=== PATIENT | female | born 2000 | race Caucasian/White ===

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

== ENCOUNTER 2020-12-08 14:22 | Emergency (ER) | payer OTHER ==
[2020-12-08 14:52] VITALS: BP 128/78; PULSE 115; TEMP 98.3; BMI 21.7
== END 2020-12-08 17:45 | disposition home or self-care (01) ==
LOC: JERFT 14:22
DX: S00.83XA Contusion of other part of head, initial encounter (principal)
CPT/HCPCS: 70450-TC; 70486-TC; 99284-25

== ENCOUNTER 2021-06-16 00:01 | Emergency (ER) | payer OTHER ==
[2021-06-16 00:22] VITALS: BP 111/68; PULSE 90; TEMP 98.2; BMI 23.4
[2021-06-16 01:29] LABS: EPI CELLS 21 /uL (0-25.1); HYALINE CASTS 4 /uL (0-3.1); URINE APPEARANCE CLOUDY; URINE BACTERIA 2828 /uL (0-1359); URINE BILIRUBIN NEGATIVE (NEGATIVE); URINE COLOR YELLOW; URINE GLUCOSE (UA) NEGATIVE (NEGATIVE); URINE KETONE TRACE (NEGATIVE); URINE LEUK ESTERASE 3+ (NEGATIVE); URINE NITRITE NEGATIVE (NEGATIVE); URINE PROTEIN 2+ (NEGATIVE); URINE RBC 555 /uL (0-23.9); URINE WBC 4257 /uL (0-25.8)
[2021-06-16 01:34] LABS: HCG,QUALITATIVE URINE Negative
[2021-06-16 02:42] LABS: YEAST NONE SEEN (NEGATIVE)
== END 2021-06-16 01:30 | disposition home or self-care (01) ==
LOC: JER 00:01
DX: N30.01 Acute cystitis with hematuria (principal); T80.62XA Other serum reaction due to vaccination, initial encounter
CPT/HCPCS: 36415; 81003; 84703; 87086; 87186; 87491; 87591; 87661; 99283-25; C9803; U0003; U0005

== ENCOUNTER 2021-12-29 23:20 | Emergency (ER) | payer OTHER ==
[2021-12-29 23:29] VITALS: BP 136/92; PULSE 120; TEMP 98; BMI 22.4
[2021-12-29] MEDS ORDERED: methylPREDNISolone NA SUCC 125 MG/2 ML VIAL IVPB ONE (23:30)
[2021-12-29] MEDS ORDERED: FAMOTIDINE 20 MG/50 ML IVPB 20 MG/50 ML MG IVPB ONE (23:30)
[2021-12-29] MEDS ORDERED: FAMOTIDINE 10 MG/ML VIAL IVPB ONE (23:31)
[2021-12-29] MEDS ORDERED: methylPREDNISolone NA SUCC 125 MG/2 ML VIAL ONE (23:31)
== END 2021-12-30 00:48 | disposition home or self-care (01) ==
LOC: JER 23:20
PROC: 3E033GC Introduction of Other Therapeutic Substance into Peripheral Vein, Percutaneous Approach (ICD-10-PCS; principal; 2021-12-29)
PROC: 3E033GC Introduction of Other Therapeutic Substance into Peripheral Vein, Percutaneous Approach (ICD-10-PCS; 2021-12-29)
PROC: 3E033GC Introduction of Other Therapeutic Substance into Peripheral Vein, Percutaneous Approach (ICD-10-PCS; 2021-12-29)
DX: Z91.013 Allergy to seafood (principal)
CPT/HCPCS: 99284-25

== ENCOUNTER 2023-05-21 23:57 | Emergency (ER) | payer OTHER ==
[2023-05-22 00:15] VITALS: TEMP 98.1; BMI 25.2
[2023-05-22] MEDS ORDERED: ACETAMINOPHEN 1000 MG/100 ML BAG IVPB ONE (00:23)
[2023-05-22] MEDS ORDERED: ACETAMINOPHEN INJECTION 100 ML IVPB ONE (00:52)
[2023-05-22 01:26] LABS: BASO % 0.4 % (0-2.0); EOS % 1.4 % (0-4.5); HEMATOCRIT 38.7 % (32.4-45.2); HEMOGLOBIN 12.6 GM/dL (10.7-15.3); LYMPH % 12.6 % (8-40); MCH 25.8 pg (25.7-33.7); MCHC 32.5 g/dl (32.0-36.0); MEAN CELL VOLUME 79.3 fl (80-96); NEUT % 79.6 % (42.8-82.8); PLATELET COUNT 425 10^3/uL (134-434); RBC 4.88 M/mm3 (3.60-5.2); RDW 14.2 % (11.6-15.6); WHITE BLOOD COUNT 14.4 K/mm3 (4.0-10.0)
[2023-05-22 01:48] LABS: ALBUMIN 3.6 g/dl (3.4-5.0); BLOOD UREA NITROGEN 6.9 mg/dL (7-18); CALCIUM 8.9 mg/dL (8.5-10.1)
[2023-05-22 01:51] LABS: CREATININE 0.7 mg/dL (0.55-1.3)
[2023-05-22 01:53] LABS: BILIRUBIN,TOTAL 0.2 mg/dL (0.2-1); TOT PROT 7.9 g/dl (6.4-8.2)
[2023-05-22 02:21] LABS: PH,URINE 5.5 (5.0-8.0); URINE APPEARANCE CLEAR; URINE BILIRUBIN NEGATIVE (NEGATIVE); URINE COLOR YELLOW; URINE GLUCOSE (UA) NEGATIVE (NEGATIVE); URINE KETONE NEGATIVE (NEGATIVE); URINE LEUK ESTERASE NEGATIVE (NEGATIVE); URINE NITRITE NEGATIVE (NEGATIVE); URINE PROTEIN NEGATIVE (NEGATIVE); URINE UROBILINOGEN 0.2 mg/dL (0.2-1.0)
[2023-05-22] MEDS ORDERED: morphine CARPU-JECT 4 MG/1 ML DISP.SYRIN IVPUSH ONE (02:25)
[2023-05-22 02:33] LABS: INR 0.95 (0.83-1.09)
[2023-05-22 02:36] LABS: ACTIVATED PTT 23.8 SECONDS (25.2-36.5)
[2023-05-22 02:38] LABS: HCG,QUALITATIVE URINE Negative
[2023-05-22] MEDS ORDERED: morphine SULFATE 4 MG/ML VIAL ONE (02:43)
[2023-05-22] MEDS ORDERED: KETOROLAC TROMETHAMINE 15 MG/ML VIAL IVPUSH ONE (06:46)
[2023-05-22] MEDS ORDERED: KETOROLAC TROMETHAMINE 15 MG/ML VIAL ONE (06:50)
[2023-05-22] MEDS ORDERED: ONDANSETRON 4 MG/2 ML VIAL IVPUSH ONE (07:36)
[2023-05-22] MEDS ORDERED: ONDANSETRON 4 MG/2 ML VIAL ONE (07:49)
[2023-05-22 09:22] VITALS: BP 122/67; PULSE 79; RESP 20
== END 2023-05-22 09:22 | disposition home or self-care (01) ==
LOC: JER 23:57
PROC: 3E033NZ Introduction of Analgesics, Hypnotics, Sedatives into Peripheral Vein, Percutaneous Approach (ICD-10-PCS; principal; 2023-05-22)
PROC: 3E0333Z Introduction of Anti-inflammatory into Peripheral Vein, Percutaneous Approach (ICD-10-PCS; 2023-05-22)
PROC: 3E033GC Introduction of Other Therapeutic Substance into Peripheral Vein, Percutaneous Approach (ICD-10-PCS; 2023-05-22)
PROC: 3E033GC Introduction of Other Therapeutic Substance into Peripheral Vein, Percutaneous Approach (ICD-10-PCS; 2023-05-22)
DX: R10.31 Right lower quadrant pain (principal); R10.2 Pelvic and perineal pain
CPT/HCPCS: 36415; 71045-TC-FY; 74177-TC; 76830-TC; 80053; 81003; 83605; 83690; 84703; 85025; 85610; 85730; 86850; 86900; 86901; 99285-25; Q9967

== ENCOUNTER 2023-08-19 20:40 | Emergency (ER) | payer OTHER ==
[2023-08-19 20:46] VITALS: BP 131/80; PULSE 104; RESP 20; TEMP 98.3; BMI 25.4
[2023-08-19 22:02] LABS: EPI CELLS 27 /uL (0-25.1); HYALINE CASTS 1 /uL (0-3.1); URINE APPEARANCE CLEAR; URINE BACTERIA 215 /uL (0-1359); URINE BILIRUBIN NEGATIVE (NEGATIVE); URINE COLOR YELLOW; URINE GLUCOSE (UA) NEGATIVE (NEGATIVE); URINE KETONE NEGATIVE (NEGATIVE); URINE LEUK ESTERASE TRACE (NEGATIVE); URINE NITRITE NEGATIVE (NEGATIVE); URINE PROTEIN NEGATIVE (NEGATIVE); URINE RBC 21 /uL (0-23.9); URINE UROBILINOGEN 0.2 mg/dL (0.2-1.0); URINE WBC 56 /uL (0-25.8)
[2023-08-19 22:14] LABS: HCG,QUALITATIVE URINE Negative
== END 2023-08-20 00:24 | disposition home or self-care (01) ==
LOC: JERFT 20:40 → JER 20:40 → JERFT 08-20 00:24
DX: R51.9 Headache, unspecified (principal); R11.0 Nausea; M79.603 Pain in arm, unspecified; V49.40XA Driver injured in collision with unspecified motor vehicles in traffic accident, initial encounter; W22.8XXA Striking against or struck by other objects, initial encounter; Y93.I9 Activity, other involving external motion
CPT/HCPCS: 81003; 84703; 99283-25